=== PATIENT | female | born 1950 | race Caucasian/White ===

== ENCOUNTER 2020-10-29 14:32 | Emergency (ER) | payer MEDICARE, MEDICAID, SELFPAY ==
[2020-10-29 14:33] VITALS: BP 104/75; PULSE 82; RESP 16; TEMP 36.6; O2SAT 99; BMI 34.7
--- NOTE | 2020-10-29 14:55 | ED.VIS.GEN ---
History of Present Illness Chief Complaint: Lower Extremity Injury Informant: Patient Narrative: 70-year-old female presenting with bilateral foot pain. She states this has been going on for months since she had COVID-19. She has been having debility problems. She states she no longer lives at home and lives in a group home. She states that the doctor at the facility does not prescribe her enough pain medication and she is taking Lyrica currently with reportedly 10 mg of Percocet every 4 hours. She states the Percocet was provided by her previous PCP. She has a palliative care consult at the group home however there is nobody risk control representative for palliative care and the group home can change her orders without getting in touch with them. Patient was previously in pain management, but was told she may not come back after receiving a prescription for pain medication after her surgery. She states that she did not know she was not allowed to take surgical medication and therefore was kicked out of the practice. They were told to send her to the emergency room for pain control. She denies any new injury or trauma. She has been eating and drinking normally. She has no fever or chills. - Past Medical History (1) Anemia Status: Chronic Comment: has never had a colonoscopy (2) Anxiety disorder Status: Chronic (3) Asthma Status: Chronic Past Medical History - Allergies and Home Meds Allergies/Adverse Reactions: Allergies duloxetine [From Cymbalta] Allergy (Verified 06/18/16 09:45) Other MAKES ME PASS OUT nabumetone [From Relafen] Allergy (Verified 06/18/16 09:45) Rash venlafaxine [From Effexor] Allergy (Verified 06/18/16 09:45) Other MAKES ME PASS OUT acetaminophen [From Vicodin] Adverse Reaction (Verified 06/18/16 09:45) Other KEEPS ME AWAKE buspirone [From BuSpar] Adverse Reaction (Verified 10/29/20 14:37) Other hydrocodone [From Vicodin] Adverse Reaction (Verified 06/18/16 09:45) Other KEEPS ME AWAKE paroxetine [From Paxil] Adverse Reaction (Verified 10/29/20 14:36) Other risperidone [From Risperdal] Adverse Reaction (Verified 10/29/20 14:36) Other Primary Care Physician: Keturah Forde MD [Primary Care Provider] - Prior records reviewed: Yes Surgical History: cholecystectomy, hysterectomy - With bilateral oophorectomy secondary to fibroids and dysfunctional uterine bleeding, total knee arthroplasty - Bilateral, - - Right shoulder replacement, tubal ligation Lives: [facility] Smoking Status: Never smoker - Family History Maternal Family History: Reports: - - Patient was adopted and knows nothing of her parents. Review of Systems General: Denies: Chills, Fever, Sweats Eyes: Denies: Visual changes - bilaterally, Diplopia ENT: Denies: Rhinorrhea, Sore throat Cardiovascular: Denies: Chest pain, Palpitations Respiratory: Denies: Dyspnea, Cough, Dyspnea on exertion Genitourinary: Denies: Dysuria, Hematuria, Frequency Musculoskeletal: Reports: - - Bilateral foot pain Skin: Denies: Rash, Wounds Neurological: Denies: Headache, Weakness, Numbness Psych: Denies: Depression, Anxiety, Suicidal thoughts, Suicidal ideations, -, - Physical Exam Vital Signs/Narrative: Vital Signs Temp Pulse Resp BP Pulse Ox 10/29/20 14:33 98 F 82 16 104/75 99 Inital Vital Signs reviewed: Yes General: Well nourished, No Acute Distress Head: Normocephalic, Atraumatic Eyes: Perrl, EOMI ENT: Moist mucous membranes, No rhinorrhea Cardiovascular: Regular rate, Regular rhythm Respiratory: No distress, CTA bilaterally Extremities: Nontender, No edema Skin: Normal color, No rash Neurological: Alert, Oriented x3, Normal Gait Psychological: Normal affect, Normal Mood Diagnostic/Tx/Re-eval - Medical Decision Making Patient presented with bilateral foot pain. She has palliative care currently to help her with her pain control at the group home. Nobody was able to get a hold of them from the group home. I do not believe it is appropriate to change her medication regimen given that she is already prescribed more than I would be comfortable with. I will give her a shot of morphine in the ED and discharge her back to the group home in stable condition. Impression: 1. Bilateral foot pain acute on chronic ED Disposition - Plan for ED Patient: Referrals: Keturah Forde MD [Primary Care Provider] -
[2020-10-29] MEDS: Morphine 4 MG/ML Syringe IV (15:04)
[2020-10-29 15:58] VITALS: BP 155/91; PULSE 67; RESP 16; O2SAT 96
--- NOTE | 2020-10-29 16:13 | ED.RN ---
this rn attempted to call report to [facility]. no answer on phone after ringing for 4 min, unable to leave a message.
--- NOTE | 2020-10-29 16:30 | ED.RN ---
2 HOUR ETA WITH PHYSICANS
[2020-10-29 16:58] VITALS: BP 145/93; PULSE 75; RESP 20; O2SAT 100
--- NOTE | 2020-10-29 16:59 | ED.RN ---
pure wick placed per pt request. reports frequent urination, unable to ambulate.
[2020-10-29 18:02] VITALS: BP 154/91; PULSE 69; RESP 16; O2SAT 98
--- NOTE | 2020-10-29 18:50 | ED.RN ---
PT RINGS CALL LIGHT REPORTS TIM RETURNING. DR REYES, WHOM RESUMED CARE FROM DR. SOSA INFORMED. MORPHINE ORDERED SEE SEP.
[2020-10-29] MEDS: Morphine 4 MG/ML Syringe IM (18:55)
--- NOTE | 2020-10-29 19:04 | ED.RN ---
PHYSICIANS HAD ORIGINALLY TOLD US A ETA OF 2 HOURS AT 16:30, CALLED AT 1900 THEY SAID IT WOULD BE ANOTHER HOUR BEFORE THE PATIENT WOULD BE PICKED UP.
== END 2020-10-29 20:03 | disposition intermediate care facility (04) ==
PROVIDERS: Emergency Provider Student in an Organized Health Care Education/Training Program; PCP Family Medicine
DX: M79.671 Pain in right foot (principal); M79.672 Pain in left foot; G89.29 Other chronic pain; F41.9 Anxiety disorder, unspecified; J45.909 Unspecified asthma, uncomplicated; Z90.722 Acquired absence of ovaries, bilateral; Z90.710 Acquired absence of both cervix and uterus; Z90.49 Acquired absence of other specified parts of digestive tract; Z79.899 Other long term (current) drug therapy
CPT/HCPCS: 96372; 96374; 99284